=== PATIENT | female | born 1995 | race Caucasian/White ===

== ENCOUNTER 2021-05-01 22:41 | Emergency (ER) | payer BC ==
[~2021-05-01] VITALS: Ht 162.6 cm; Wt 81.8 kg
[2021-05-01 22:52] VITALS: TEMP 97.9
[2021-05-01 23:28] LABS: BASO # 0.1 (0.0-0.2); BASO % 0.5 % (0.0-2.0); EOS # 0.1 (0.0-0.7); EOS % 0.9 % (0-4.0); GRAN # 6.3 (1.4-6.5); HEMOGLOBIN 14.8 g/dl (12.5-16.0); LYMPH # 3.6 (1.2-3.4); LYMPH % 33.5 % (20.0-51.0); MEAN CELL VOLUME 89 fl (80.0-100.0); MEAN CORPUSCULAR HEMOGLOBIN 29 pg (27.0-31.0); MEAN CORPUSCULAR HGB CONC 32 g/dl (33.0-37.0); MEAN PLATELET VOLUME 9.6 fl (7.4-10.4); MONO # 0.7 (0.1-0.6); MONO % 6.6 % (1.7-9.3); PLATELET COUNT 302 K/mm3 (130-400); RED BLOOD COUNT 5.19 M/mm3 (4.10-5.30); REDCELL DISTRIBUTION WIDTH-CV 13.1 % (11.5-14.5)
[2021-05-01 23:39] LABS: CREATINE KINASE 171 U/L (30-135)
[2021-05-01 23:40] LABS: ALANINE AMINOTRANSFERASE 34 U/L (4-34); ALBUMIN 4.5 gm/dL (3.5-5.0); ALCOHOL(ethanol),MEDICAL < 10 mg/dL; ALKALINE PHOSPHATASE 118 U/L (50-136); ANION GAP 12 mmol/L (7-16); AST,SGOT 50 U/L (15-37); BILIRUBIN,TOTAL 0.2 mg/dL (0.0-1.0); BLOOD UREA NITROGEN 20 mg/dL (7-17); CALCIUM 9.6 mg/dL (8.4-10.2); CARBON DIOXIDE 27 mmol/L (22-30); CHLORIDE 102 mmol/L (98-107); CREATININE, serum 0.48 (0.52-1.25); GLUCOSE 112 mg/dL (74-106); POTASSIUM 3.8 mmol/L (3.4-5.0); SODIUM 141 mmol/L (137-145); TOTAL PROTEIN 8.2 gm/dL (6.4-8.2)
[2021-05-01 23:55] LABS: TROPONIN-I < 0.012 ng/mL (0.000-0.035)
[2021-05-02 00:47] LABS: COLLECTION METHOD CLEAN CATCH
[2021-05-02 00:52] LABS: PH 5 (5-8); SQUAMOUS EPITHELIAL 0-2 /hpf; URINE APPEARANCE Clear; URINE BACTERIA None Seen /hpf; URINE BILIRUBIN Negative (NEGATIVE); URINE BLOOD 2+ (NEGATIVE); URINE COLOR Yellow; URINE GLUCOSE Negative (NEGATIVE); URINE KETONE Negative (NEGATIVE); URINE LEUKOCYTE ESTERASE Negative (NEGATIVE); URINE NITRATE Negative (NEGATIVE); URINE PROTEIN(semi-quant) Negative (NEGATIVE); URINE UROBILINOGEN Negative (NEGATIVE); URINE WBC 0-2 /hpf
[2021-05-02 01:11] LABS: TRICYCLIC ANTIDEPRESS URINE NEGATIVE
[2021-05-02 01:41] VITALS: BP 102/72; PULSE 69
== END 2021-05-02 02:00 | disposition home or self-care (01) ==
LOC: COL.ER 22:41
PROVIDERS: Emergency Medicine
DX: F41.9 Anxiety disorder, unspecified (principal); W18.30XA Fall on same level, unspecified, initial encounter
CPT/HCPCS: J2060; J7030

== ENCOUNTER 2021-09-23 19:00 | Emergency (ER) | payer BC ==
[~2021-09-23] VITALS: Ht 157.5 cm; Wt 77.3 kg
[2021-09-23 22:07] VITALS: BP 141/83; PULSE 88; TEMP 98.1
== END 2021-09-23 22:07 | disposition home or self-care (01) ==
LOC: COL.ER 19:00
DX: T24.001A Burn of unspecified degree of unspecified site of right lower limb, except ankle and foot, initial encounter (principal); T21.01XA Burn of unspecified degree of chest wall, initial encounter; T21.04XA Burn of unspecified degree of lower back, initial encounter; T59.811A Toxic effect of smoke, accidental (unintentional), initial encounter; X08.8XXA Exposure to other specified smoke, fire and flames, initial encounter; Y92.009 Unspecified place in unspecified non-institutional (private) residence as the place of occurrence of the external cause